=== PATIENT | female | born 1975 | race Caucasian/White ===

== ENCOUNTER → 2018-03-22 17:25 | Outpatient (CLI) | payer SELFPAY ==
[2018-03-22 17:42] LABS: Hematocrit 31.9 % (37-47); Hemoglobin 10.4 g/dl (12.0-15.0); Mean Corp Hgb Conc 32.6 g/gl (32-36); Mean Corpuscular Hgb 30.9 pg (27.0-32.0); Mean Corpuscular Volume 94.7 fL (81-99); Mean Platelet Vol. 10.1 fl (6.2-12.0); Platelet Count 265 K/mm3 (150-450); RBC Distribution Width CV 12.3 % (11.6-14.6); RBC Distribution Width SD 41.3 fl (35.1-43.9); Red Blood Count 3.37 M/mm3 (4.2-5.4); White Blood Count 8.5 K/mm3 (4.4-11.0)
[2018-03-22 17:44] LABS: Scan Indicated on CBC? Y/N NO
[2018-03-22 18:06] LABS: Hemoglobin A1c 5.4 % (4.2-6.3)
[2018-03-22 18:17] LABS: Estradiol 221.7 pg/mL; Free T3 2.8 pg/mL (2.18-3.98); T4 Free Direct 1.07 ng/dL (0.76-1.46); Thyroid Stim Hormone (TSH) 1.55 uIU/mL (0.358-3.74)
[2018-03-22 18:18] LABS: hCG Titer Quant., Serum < 1 mIU/mL (<9 non-preg)
[2018-03-22 18:25] LABS: Progesterone Level 0.73 ng/mL (See Comment)
[2018-03-24 08:26] LABS: Thyroid Peroxidase AB 18 IU/mL (0-34)
== END ==
PROVIDERS: Referring Provider Obstetrics & Gynecology; Visit Provider Obstetrics & Gynecology
DX: N92.6 Irregular menstruation, unspecified (principal)
CPT/HCPCS: 82670; 83036; 84144; 84403; 84439; 84443; 84481; 84702; 85027; 86376

== ENCOUNTER → 2018-03-24 17:01 | Outpatient (CLI) | payer SELFPAY ==
--- NOTE | 2018-03-24 17:04 | US_ITS ---
STUDY: ULTRASOUND TRANSVAGINAL CLINICAL: Female, 42 years old. Irregular menses and history of endometriosis TECHNIQUE: Transvaginal # of Images: 90 COMPARISON: None. FINDINGS: The uterus is retroverted and measures 9.8 x 6.2 x 5.8 cm. The endometrium is thickened, measuring 17 mm. Endometrium is hyperechoic and contains several small areas of calcification and several tiny cystic foci. The endometrium/myometrium interface posteriorly is not clearly defined by ultrasound. Endometriosis extending into the myometrium could have this ultrasound appearance. Consider MRI correlation to evaluate further if clinically indicated. The right ovary measures 5.8 x 2.7 x 2.4 cm. It contains a 2.8 x 2.7 x 2.6 cm septated cyst and a 2.1 x 1.9 x 1.1 cm simple cyst. The left ovary measures 3.2 x 2.1 x 1.7 cm. Bilateral ovaries vascularity is normal. No free pelvic fluid is seen. Nabothian cyst in the cervix. No free pelvic fluid is seen. US/Transvaginal Non- IMPRESSION: Endometrial thickening and heterogeneity. Endometrium/myometrium interface posteriorly is not clearly defined and underlying invasive endometriosis is not excluded. Consider pre and postcontrast pelvic MRI to evaluate further if clinically indicated. Septated right ovary cyst measuring up to 2.8 cm. Simple right ovary cyst measuring up to 2.1 cm. Electronically Signed: Asael Pickering MD at 4:18 EDT Tel , Service support ,
== END ==
PROVIDERS: Referring Provider Obstetrics & Gynecology; Visit Provider Obstetrics & Gynecology
DX: N92.6 Irregular menstruation, unspecified (principal)
CPT/HCPCS: 76830; 93976

== ENCOUNTER → 2018-04-07 17:45 | Outpatient (CLI) | payer SELFPAY ==
--- NOTE | 2018-04-07 18:15 | MRI_ITS ---
STUDY: MR PELVIS WITH T WITHOUT CONTRAST REASON FOR EXAM: Female, 42 years old. Abnormal uterine bleeding with recent abnormal pelvic ultrasound. TECHNIQUE: Standardized fat and water weighted pulse sequences were obtained in all 3 orthogonal planes, pre-and post contrast administration. 7 ml of Gadavist contrast material was administered intravenously for the contrast portion of the examination. COMPARISON: Pelvic ultrasound dated March 24, 2018. FINDINGS: Normal urinary bladder. Normal visualized small intestine. Normal visualized colon. The uterus is retroverted. Uterus measures approximately 11.3 cm in cephalocaudal dimension by 6 cm in AP dimension by 7.3 cm in transverse dimension. The junctional zone appears thickened measuring approximately 1.2 cm in thickness. The endometrium measures approximately 6.9 mm in thickness. The uterine myometrium has a normal appearance, otherwise. There are some small nabothian cysts in the cervix. The cervix is a normal appearance. There is appears to be a large cyst within the left ovarian adnexal area measuring approximately 3.3 x 3.0 x 3.1 cm. There may be some fluid adjacent to the cyst. Right ovary has follicles. The right ovary measures approximately 3.4 x 1.5 x 1.9 cm in size. There is no pelvic fluid. There is no pelvic mass lesion or lymphadenopathy. Normal visualized pelvic arteries. Normal osseous structures. Normal abdominal wall. MRI/Pelvis W/WO Contrast IMPRESSION: 1. Thickened junctional zone is consistent with a history of endometriosis and/or adenomyosis. 2. Large left ovarian cyst. Electronically Signed: Dorcas Underwood MD at 5:32 EST , Service support ,
== END ==
PROVIDERS: Referring Provider Obstetrics & Gynecology; Visit Provider Obstetrics & Gynecology
DX: N93.8 Other specified abnormal uterine and vaginal bleeding (principal)
CPT/HCPCS: 72197; A9585